=== PATIENT | male | born 1955 | race Caucasian/White ===

== ENCOUNTER → 2016-06-28 | Outpatient (CLI) | payer OTHER | LOC: RAD 09:29 | PROVIDERS: ATTEND Specialist | DX: C61 Malignant neoplasm of prostate (principal) | CPT/HCPCS: 78306; A9503; Q9969 ==

== ENCOUNTER 2016-12-09 10:13 | Emergency (ER) | payer OTHER ==
[2016-12-09] MEDS ORDERED: PENICILLIN V POTASSIUM 500 MG TABLET PO ONE (11:12)
[2016-12-09] MEDS ORDERED: LIDOCAINE 2% VISCOUS SOLN 20 ML UDCUP PO ONE (11:12)
--- NOTE | 2016-12-09 11:21 | ER Document Report ---
ED Oral Problem - General Chief Complaint: Toothache Stated Complaint: JAW PAIN Time Seen by Provider: 12/09/16 10:55 Mode of Arrival: Ambulatory Information source: Patient Notes: 61-year-old male presents to ED for pain to his right jaw but to 22 months but getting worse today for the pain. 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 TRAVEL OUTSIDE OF THE [place] IN LAST 30 DAYS: No - HPI Patient complains to provider of: Jaw pain Onset: Other - 2 months worse today Onset: Gradual Quality of pain: Sharp, Throbbing Severity: Moderate Pain Level: 4 Associated symptoms: Jaw pain Worsened by: Heat Relieved by: Nothing Similar symptoms previously: Yes Recently seen / treated by doctor/dentist: No - Related Data Allergies/Adverse Reactions: No Known Allergies Allergy (Unverified 12/09/16 10:25) Past Medical History - Social History Smoking Status: Current Every Day Smoker Chew tobacco use (# tins/day): No Frequency of alcohol use: None Drug Abuse: None Lives with: Alone Family History: Reviewed & Not Pertinent Patient has suicidal ideation: No - Past Medical History Cardiac Medical History: Reports: Hx Hypertension Pulmonary Medical History: Reports: None EENT Medical History: Reports: None Neurological Medical History: Reports: None Endocrine Medical History: Reports: Hx Diabetes Mellitus Type 2 Renal/ Medical History: Reports: None Malignancy Medical History: Reports Hx Prostate Cancer GI Medical History: Reports: None Musculoskeltal Medical History: Reports None Skin Medical History: Reports None Psychiatric Medical History: Reports: None Traumatic Medical History: Reports: None Infectious Medical History: Reports: None Surgical Hx: Negative - Immunizations Hx Diphtheria, Pertussis, Tetanus Vaccination: Yes Review of Systems - Review of Systems Constitutional: No symptoms reported EENT: Mouth pain - Right lower jaw pain at the site of a previous dental extraction with redness and inflammation. Cardiovascular: No symptoms reported Respiratory: No symptoms reported Gastrointestinal: No symptoms reported Genitourinary: No symptoms reported Male Genitourinary: No symptoms reported Musculoskeletal: No symptoms reported Skin: No symptoms reported Hematologic/Lymphatic: No symptoms reported Neurological/Psychological: No symptoms reported -: Yes All other systems reviewed and negative Physical Exam - Vital signs Vitals: Temp Pulse Resp BP Pulse Ox 98.2 F 70 16 196/104 H 97 12/09/16 10:26 12/09/16 10:26 12/09/16 10:26 12/09/16 10:26 12/09/16 10:26 Interpretation: Normal - General General appearance: Appears well, Alert - HEENT Head: Normocephalic, Atraumatic Eyes: Normal Pupils: PERRL Ears: Normal External canal: Normal Tympanic membrane: Normal Nasal: Normal Mouth/Lips: Normal Mucous membranes: Normal Teeth diagram: 1 - Red swollen area at the site of a previous dental extraction. Pharynx: Normal Neck: Normal - Respiratory Respiratory status: No respiratory distress Chest status: Nontender Breath sounds: Normal Chest palpation: Normal - Cardiovascular Rhythm: Regular Heart sounds: Normal auscultation Murmur: No - Abdominal Inspection: Normal Distension: No distension Bowel sounds: Normal Tenderness: Nontender Organomegaly: No organomegaly - Back Back: Normal, Nontender - Extremities General upper extremity: Normal inspection, Nontender, Normal color, Normal ROM , Normal temperature General lower extremity: Normal inspection, Nontender, Normal color, Normal ROM , Normal temperature, Normal weight bearing. No: Tomas's sign - Neurological Neuro grossly intact: Yes Cognition: Normal Orientation: AAOx4 [place] Coma Scale Eye Opening: Spontaneous Ronaldo Coma Scale Verbal: Oriented Ronaldo Coma Scale Motor: Obeys Commands Ronaldo Coma Scale Total: 15 Speech: Normal Motor strength normal: LUE, RUE, LLE, RLE Sensory: Normal - Psychological Associated symptoms: Normal affect, Normal mood - Skin Skin Temperature: Warm Skin Moisture: Dry Skin Color: Normal Course - Re-evaluation Re-evalutation: 12/09/16 13:41 Dr. villalpando was called and an appointment made for the patient to follow-up tomorrow for his pain is swelling to the site of a previous dental extraction. Patient was given instructions on location of Dr. villalpando in the time of his appointment. Patient was started on penicillin VK and given viscous lidocaine for his pain. - Vital Signs Vital signs: Temp Pulse Resp BP Pulse Ox 98.2 F 70 16 176/103 H 97 12/09/16 10:26 12/09/16 11:34 12/09/16 11:34 12/09/16 11:34 12/09/16 11:34 Discharge - Discharge Clinical Impression: right jaw pain from tooth extraction Condition: Stable Disposition: HOME, SELF-CARE Additional Instructions: TOOTHACHE: Your pain is due to infection from previous dental extraction. The site must be repaired in order for you to feel better. You will, therefore, be referred to a dentist. We do not have dentists on the staff at [facility]. Severe swelling or drainage around can mean an abscess. This also requires evaluation and treatment by the dentist, but antibiotics may be prescribed while awaiting dental treatment. You should be rechecked immediately if you develop major swelling of the face, increasing pain, a lump in the jaw or gums, headache, difficulty swallowing, or fever. PENICILLIN V K: You have been given a prescription for Penicillin VK. Your physician has determined that this is the best antibiotic for your condition. Pen VK can be taken with meals, however more of the antibiotic gets into the bloodstream if it's taken on an empty stomach. Penicillin usually has no side effects. However, allergy to penicillins is common. If you have had an allergic reaction to any drug of the penicillin family, you should never take any other penicillin. Notify your doctor at once if you develop hives, itching, swelling, faintness, or shortness of breath. FOLLOW-UP CARE: You have been referred for follow-up care to the dentists listed below. Call the dentists office for an appointment as you were instructed or within the next two days. If you experience worsening or a significant change in your symptoms, notify the physician immediately or return to the Emergency Department at any time for re-evaluation. [facility] [address] [place], [place] Friday mornings, by appointment [facility] [address] [place] [address] [facility] [address] [facility] [place] [address] [facility] [place] [facility] [address] [email or web address] [address] [place] [address] Friday- 8:00am to 5:00 pm Will [facility] other [facility]. Charges based on income and family size and accepts Medicare, Medicaid, and Insurances Will pull molars COUNT INCLUDES THE [facility] [address] Hours of Operation 8:00 am - 4:30 pm weekdays The following dental offices accept Medicaid: [facility] Dr. Gonzalez Dr. Velazquez Dr. Fya Dr. Luis Enrique Thurston Lutsavage, and [facility] Dr. Barajas ([place]) Dr. Ross ([place]) [facility] Drs. Shea and Lb ([place]) Dr. Brown ([place]) [facility] [place] Dr. Swan ([place]) Drs. De La Rosa and ([place]) Medicaid Care Line Prescriptions: Penicillin V Potassium [Penicillin Vk 500 mg Tablet] 500 mg PO BID #20 tablet Forms: Elevated Blood Pressure, Return to Work Referrals: HOLLY VILLALPANDO DDS [ACTIVE STAFF] - Follow up tomorrow (10 am on 12/09/16)
[2016-12-09 11:37] VITALS: BP 176/103
== END 2016-12-09 11:39 | disposition home or self-care (01) ==
LOC: ER 10:13
DX: R68.84 Jaw pain (principal); Z98.890 Other specified postprocedural states; Z85.46 Personal history of malignant neoplasm of prostate; Z85.830 Personal history of malignant neoplasm of bone; I10 Essential (primary) hypertension; E11.9 Type 2 diabetes mellitus without complications; F17.200 Nicotine dependence, unspecified, uncomplicated
CPT/HCPCS: 99282; J3490

== ENCOUNTER → 2018-01-05 | Outpatient (CLI) | payer OTHER ==
--- NOTE | 2018-01-05 17:11 | RADIOLOGY REPORT (SQ) ---
EXAM DESCRIPTION: NM WHOLE BODY BONE SCAN COMPLETED DATE/TIME: 01/05/2018 2:27 pm REASON FOR STUDY: PROSTATE CA C61 MALIGNANT NEOPLASM OF PROSTATE COMPARISON: Bone scan 06/28/2016, 08/05/2014 CT chest 08/28/2015 RADIONUCLIDE AND DOSE: 21.8 millicuries Tc99m MDP. The route of agent administration: Intravenous. ADDITIONAL DRUGS AND DOSES: None. TECHNIQUE: Routine delayed images at 3 hours post radionuclide injection acquired of the bony skelet on including anterior and posterior whole-body projections and additional focused images as needed. LIMITATIONS: None. FINDINGS: BONES: Punctate focus of increased uptake along the left posterior 9th rib likely from old healed fracture. This is unchanged prior studies. Increased uptake at both acromioclavicular and sternoclavicular joints, the 1st MCP joints, bilateral knees in characteristic locations for osteoarthritis. There is increased uptake along the right C3-4 and C4-5 facet joints, and the right 8th and 9th costo vertebral joints from arthritis. Right L5-S1 facet arthropathy with increased uptake. There is increased uptake over the mandible which is less intense than on 06/28/2016. KIDNEYS: Symmetric excretion without obstruction. OTHER: No other significant finding. IMPRESSION: No worrisome findings. Decrease in mandible uptake compared to previous studies. Focal hot spots on today's bone scan correlate with characteristic areas for osteoarthritis. COMMENT: Quality measure 147: Current bone scan is compared with any available plain radiographs, p rior bone scans, and CT/MRI. TECHNICAL DOCUMENTATION: JOB ID: [id number] [employer]- All Rights Reserved Reading location - IP/workstation name: [email or web address]
== END ==
LOC: RAD 10:44
PROVIDERS: ATTEND Internal Medicine Hematology & Oncology
DX: C61 Malignant neoplasm of prostate (principal); C79.51 Secondary malignant neoplasm of bone
CPT/HCPCS: 78306; A9561; Q9969

== ENCOUNTER → 2019-02-05 | Outpatient (CLI) | payer BC, OTHER ==
--- NOTE | 2019-02-05 10:54 | RADIOLOGY REPORT (SQ) ---
EXAM DESCRIPTION: CT CHEST WITH COMPLETED DATE/TIME: 02/05/2019 9:48 am REASON FOR STUDY: PROSTATE CANCER BONE CANCER C61 MALIGNANT NEOPLASM OF PROSTATE COMPARISON: CT of the chest without contrast from 08/28/2015 and bone scan from 01/05/2018 TECHNIQUE: CT scan of the chest performed using helical scanning technique with dynamic intravenous contrast injection. Images reviewed with lung, soft tissue and bone windows. Reconstructed coronal and sagittal MPR and MIP images reviewed. All images stored on PACS. All CT scanners at this facility use dose modulation, iterative reconstruction, and/or weight based d osing when appropriate to reduce radiation dose to as low as reasonably achievable (ALARA). [facility]: Dose Right [facility]: CareDose [facility]: Dose Right [facility]: Teradose 4D [facility]: Advise Only CONTRAST TYPE AND DOSE: 100 mL Omnipaque 300- low osmolar. RENAL FUNCTION: GFR > 60. RADIATION DOSE: DLP 2166.71 mGy cm. LIMITATIONS: None. FINDINGS: LUNGS AND PLEURA: The trachea and main bronchi are patent. There is no consolidation, speedy eolar per opacification, nodule/ mass or pleural abnormality. HILAR AND MEDIASTINAL STRUCTURES: There are several prominent mediastinal and hilar lymph nodes that include 2 right upper paratracheal lymph nodes that measure up to 11 mm in short axis diameter, a 9 m m short axis right lower paratracheal lymph node, an 8 mm short axis AP window lymph node, and an 8 m m short axis right hilar lymph node. HEART AND VASCULAR STRUCTURES: Atherosclerotic calcification of the coronary arteries. No cardiomega ly or pericardial effusion. No thoracic aortic dissection or aneurysm. HARDWARE: None. UPPER ABDOMEN: See separate report of the CT of the abdomen. THYROID AND OTHER SOFT TISSUES: There is mild bilateral gynecomastia. There are no masses or adenopa thy. BONES: Sclerotic lesion within the right posterolateral aspect of the T3 vertebral body; the degree o f sclerosis of the lesion has decreased compared to 08/28/2015. There is no other sclerotic/osteoblast ic osseous lesion. There is no fracture. OTHER: No other finding. IMPRESSION: No evidence of metastatic disease. The sclerotic lesion within the right posterolateral aspect of the T3 vertebral body was present on the CT from 08/28/2015 and the degree of sclerosis of t he lesion has in the interval. TECHNICAL DOCUMENTATION: JOB ID: [id number] Quality ID # [id number]: Final reports with documentation of one or more dose reduction techniques (e.g., Au tomated exposure control, adjustment of the mA and/or kV according to patient size, use of iterative reconstruction technique) 2010 [employer]- All Rights Reserved Reading location - IP/workstation name: [email or web address]
--- NOTE | 2019-02-05 13:38 | RADIOLOGY REPORT (SQ) ---
EXAM DESCRIPTION: CT ABD/PELVIS WITH IV ONLY COMPLETED DATE/TIME: 02/05/2019 9:46 am REASON FOR STUDY: PROSTATE CANCER BONE CANCER C61 MALIGNANT NEOPLASM OF PROSTATE COMPARISON: CT of the abdomen pelvis with contrast from 08/28/2015 and bone scan from 01/05/2018. TECHNIQUE: CT scan of the abdomen and pelvis performed using helical scanning technique with dynamic intravenous contrast injection. No oral contrast. Images reviewed with lung, soft tissue, and bone windows. Reconstructed coronal and sagittal MPR images reviewed. Delayed images for evaluation of the urinary system also acquired. All images stored on PACS. All CT scanners at this facility use dose modulation, iterative reconstruction, and/or weight based d osing when appropriate to reduce radiation dose to as low as reasonably achievable (ALARA). [facility]: Dose Right [facility]: CareDose [facility]: Dose Right [facility]: Teradose 4D [facility]: [employer]yzios CONTRAST TYPE AND DOSE: Contrast/concentration: Isovue 300.00 mg/ml; Total Contrast Delivered: 100.0 ml; Total Saline Delivered: 72.0 ml RENAL FUNCTION: GFR > 60. RADIATION DOSE: CT Rad equipment meets quality standard of care and radiation dose reduction techniq ues were employed. CTDIvol: 9.9 - 16.7 mGy. DLP: 2167 mGy-cm.. LIMITATIONS: None. FINDINGS: LOWER CHEST: See separate report of the CT of the chest. LIVER: The liver morphology is non cirrhotic. The relative hypoattenuation of hepatic parenchyma com pared to the splenic parenchyma on the portal venous phase is suggestive of hepatic steatosis. The p unctate hypodensity within segment 4 (image 14 of series 3) is unchanged from 08/27/2017. The portal v eins are patent. SPLEEN: No splenomegaly PANCREAS: No abnormality. GALLBLADDER: No abnormality that is apparent on CT. ADRENAL GLANDS: The nodular thickening of the left adrenal gland is unchanged. RIGHT KIDNEY AND URETER: The 1 cm hypodense lesion in the superior cortex of the kidney is stable. T here is no solid mass, hydronephrosis, nephrolithiasis, hydroureter or ureterolithiasis. LEFT KIDNEY AND URETER: The hypodense lesions in the posterolateral aspect of the kidney are stable. There is no solid mass, hydronephrosis, nephrolithiasis, hydroureter or ureterolithiasis. AORTA AND VESSELS: No aneurysm or dissection of the abdominal aorta. There is a variant circumaortic left renal vein. There is a moderate to severe stenosis of the left external iliac artery (image 50 of series 604) and a mild to moderate stenosis of the right external iliac artery (image 48 of serie s 604). RETROPERITONEUM: There are prominent/ enlarged right common iliac (image 55 of series 3) and right ex ternal iliac (image 68 of series 3) lymph nodes that measure up to 11 mm in short axis diameter. BOWEL AND PERITONEAL CAVITY: Colonic diverticulosis without diverticulitis. There is no bowel obstru ction, bowel wall thickening, or pericolonic/ perienteric inflammation. There is no mesenteric adeno eli, free intraperitoneal fluid, or mesenteric/ peritoneal mass. APPENDIX: Normal. PELVIS: The prostate gland is enlarged and heterogeneous. The wall of the urinary bladder is circumf erentially thickened. ABDOMINAL WALL: Fat containing right inguinal hernia. BONES: Sclerotic lesions within the L5 vertebral body and right acetabulum that have developed from . The punctate sclerotic focus within the T12 vertebral body and the subtle sclerotic focus w ithin the right L3 pedicle new stable from 08/28/2015. OTHER: No other finding. IMPRESSION: 1. New sclerotic lesions within the L5 vertebral body and right acetabulum - correlatio n with the findings on the bone scan is recommended. 2. Enlarged right common iliac and right external iliac lymph nodes that measure up to 11 mm concern ing for priscilla metastases. 3. High-grade stenosis of the left common iliac artery. 4. Other secondary findings as detailed above. TECHNICAL DOCUMENTATION: JOB ID: [id number] Quality ID # 436: Final reports with documentation of one or more dose reduction techniques (e.g., Au tomated exposure control, adjustment of the mA and/or kV according to patient size, use of iterative reconstruction technique) 2010 [employer]- All Rights Reserved Reading location - IP/workstation name: [email or web address]
--- NOTE | 2019-02-05 14:22 | RADIOLOGY REPORT (SQ) ---
EXAM DESCRIPTION: NM WHOLE BODY BONE SCAN COMPLETED DATE/TIME: 02/05/2019 1:34 pm REASON FOR STUDY: PROSTATE CANCER BONE CANCER C61 MALIGNANT NEOPLASM OF PROSTATE COMPARISON: BONE SCAN from 01/05/2018. RADIONUCLIDE AND DOSE: 20 millicuries Tc99m HDP. The route of agent administration: Intravenous. ADDITIONAL DRUGS AND DOSES: None. TECHNIQUE: Routine delayed images at 3 hour post radionuclide injection acquired of the bony skeleto n including anterior and posterior whole-body projections and additional focused images as needed. LIMITATIONS: None. FINDINGS: BONES: The foci of increased uptake in the right mandible, left posterior 9th rib, and rig ht L3 pedicle are stable from 01/05/2018. There are new areas of abnormal radiotracer uptake within the L5 vertebral body and right acetabulum. The uptake around the shoulders and sternoclavicular flavio nts is unchanged and could be degenerative in etiology. KIDNEYS: No abnormality. OTHER: No other finding. IMPRESSION: New areas of abnormal radiotracer uptake within the L5 vertebral body and right acetabul um. The foci of increased uptake in the right mandible, left posterior 9th rib, and right L3 hepatic or stable from 01/05/2018. COMMENT: Quality measure 147: Current bone scan is compared with any available plain radiographs, p rior bone scans, and CT/MRI. TECHNICAL DOCUMENTATION: JOB ID: [id number] [employer]- All Rights Reserved Reading location - IP/workstation name: [email or web address]
== END ==
LOC: RAD 08:33
PROVIDERS: ATTEND Nurse Practitioner Family
DX: C61 Malignant neoplasm of prostate (principal); C79.51 Secondary malignant neoplasm of bone; I70.8 Atherosclerosis of other arteries
CPT/HCPCS: 82565; 78306; 71260; 74177; A9561; Q9969

== ENCOUNTER → 2019-08-30 | Outpatient (CLI) | payer BC ==
--- NOTE | 2019-08-30 11:21 | RADIOLOGY REPORT (SQ) ---
EXAM DESCRIPTION: CT CHEST WITHOUT IMAGES COMPLETED DATE/TIME: 08/30/2019 10:22 am REASON FOR STUDY: C61 MALIGNANT NEOPLASM OF PROSTATE C61 MALIGNANT NEOPLASM OF PROSTATE COMPARISON: CT of the chest with contrast from 02/05/2019. TECHNIQUE: CT scan performed of the chest without intravenous contrast. Images reviewed with lung, soft tissue and bone windows. Reconstructed coronal and sagittal MPR images reviewed. All images st ored on PACS. All CT scanners at this facility use dose modulation, iterative reconstruction, and/or weight based d osing when appropriate to reduce radiation dose to as low as reasonably achievable (ALARA). [facility]: Dose Right [facility]: CareDose [facility]: Dose Right [facility]: Teradose 4D [facility]: [employer] LIMITATIONS: No technical limitations. FINDINGS: LUNGS AND PLEURA: The trachea and main bronchi are patent. There is no acute consolidatio n, ground-glass opacification, pleural effusion or pneumothorax. There is no pulmonary nodule or mas s. HILAR AND MEDIASTINAL STRUCTURES: Evaluation of the leslie for adenopathy is limited due to the absence of intravenous contrast. There is no mediastinal adenopathy or mass. HEART AND VASCULAR STRUCTURES: Moderate atherosclerotic calcification of the coronary arteries. Ther e is no cardiomegaly or pericardial effusion. There is no thoracic aortic aneurysm. UPPER ABDOMEN: Refer to the separate report of the CT of the abdomen. THYROID AND OTHER SOFT TISSUES: Mild bilateral gynecomastia. There is no adenopathy or mass. BONES: There are several sclerotic lesions that have increased in size and number from the prior CT ; for reference the sclerotic lesion in the left acromion has increased in size (image 1 of series 2), the lesions in the left anterolateral 2nd rib (image 10 of series 2) and T6 and T10 vertebral bodies are new, and the sclerotic lesion in the T11 vertebral body has increased in size. The sclerotic le lila in the posterolateral aspect of the T3 vertebral body is unchanged. HARDWARE: None in the chest. OTHER: No other findings. IMPRESSION: New and enlarging sclerotic lesions consistent with progression of metastatic disease. TECHNICAL DOCUMENTATION: JOB ID: [id number] Quality ID # [id number]: Final reports with documentation of one or more dose reduction techniques (e.g., Au tomated exposure control, adjustment of the mA and/or kV according to patient size, use of iterative reconstruction technique) 2010 [employer]- All Rights Reserved Reading location - IP/workstation name: [email or web address]
--- NOTE | 2019-08-30 11:23 | RADIOLOGY REPORT (SQ) ---
EXAM DESCRIPTION: CT ABD/PELVIS NO ORAL OR IV IMAGES COMPLETED DATE/TIME: 08/30/2019 10:20 am REASON FOR STUDY: C61 MALIGNANT NEOPLASM OF PROSTATE C61 MALIGNANT NEOPLASM OF PROSTATE COMPARISON: 08/28/2015 TECHNIQUE: CT scan of the abdomen and pelvis performed without intravenous or oral contrast. Images reviewed with lung, soft tissue, and bone windows. Reconstructed coronal and sagittal MPR images revi ewed. All images stored on PACS. All CT scanners at this facility use dose modulation, iterative reconstruction, and/or weight based d osing when appropriate to reduce radiation dose to as low as reasonably achievable (ALARA). [facility]: Dose Right [facility]: CareDose [facility]: Dose Right [facility]: Teradose 4D [facility]: [employer] RADIATION DOSE: CT Rad equipment meets quality standard of care and radiation dose reduction techniq ues were employed. CTDIvol: 10.2 - 14.2 mGy. DLP: 1383 mGy-cm. LIMITATIONS: None. FINDINGS: LOWER CHEST: Please see CT chest report. NON-CONTRASTED LIVER, SPLEEN, ADRENALS: Too small to characterize stable hypoattenuated hepatic lesi ons. Stable mild thickening of the left adrenal gland. Evaluation limited by lack of IV contrast. PANCREAS: No masses. No peripancreatic inflammatory changes. GALLBLADDER: No identified stones by CT criteria. No inflammatory changes to suggest cholecystitis. RIGHT KIDNEY AND URETER: No suspicious masses. Assessment limited by lack of IV contrast. No signif icant calcifications. No hydronephrosis or hydroureter. LEFT KIDNEY AND URETER: Stable hypoattenuated left renal lesion, probably represents a cyst. Assess ment limited by lack of IV contrast. No significant calcifications. No hydronephrosis or hydroure ter. AORTA AND RETROPERITONEUM: Mild atherosclerotic changes involving the abdominal aorta and branch ves sels. No aneurysm. No retroperitoneal masses or adenopathy. BOWEL AND PERITONEAL CAVITY: No obvious masses or inflammatory changes. No free fluid. APPENDIX: Normal. PELVIS, BLADDER, AND ABDOMINAL WALL:The prostate gland is is enlarged and stable in appearance. No f ree fluid. Stable fat containing bilateral inguinal hernias. Mild diffuse thickening of the urinary bladder wall. BONES: Since the previous examination, new finding of smooth homogeneous sclerotic appearance to the L5 vertebra. New sclerotic lesions within the T9 T10, L1 and L3 vertebrae. The posterior elements at the L3 vertebrae on the right. These findings suggest metastatic disease. No evidence of acute f racture. Fairly homogeneous new extensive sclerotic lesion within the right ischium. Small foci of sclerotic areas within the iliac bones, the largest one is in the left iliac bone, the acetabuli, femoral heads and symphysis pubis. No evidence of acute fracture. These findings suggest metastatic disease. OTHER: No other significant finding. IMPRESSION: 1. Since the previous examination dated 08/28/2015, new finding of osseous sclerotic lesi ons within the visualized lower thoracic spine, lumbar spine, pelvic bones and hips. The lesions are more extensive in the region of the L5 vertebral body and right ischium. These findings suggest met astatic disease. No evidence of acute fracture 2. Additional stable findings as above. COMMENT: Quality ID # 436: Final reports with documentation of one or more dose reduction techniques (e.g., Automated exposure control, adjustment of the mA and/or kV according to patient size, use of iterative reconstruction technique) TECHNICAL DOCUMENTATION: JOB ID: [id number] 2010 [employer]- All Rights Reserved Reading location - IP/workstation name: [email or web address]
--- NOTE | 2019-08-30 16:05 | RADIOLOGY REPORT (SQ) ---
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 The route of agent administration: Intravenous. ADDITIONAL DRUGS AND DOSES: None. TECHNIQUE: Routine delayed images at 3 hours post radionuclide injection acquired of the bony skelet on including anterior and posterior whole-body projections and additional focused images as needed. LIMITATIONS: None. FINDINGS: BONES: What appears be degenerative uptake is seen in the AC joints and in the knees. The uptake in the right pedicle of L4 remains fairly intense. The uptake in the L5 vertebral body remai ns fairly intense there is slightly decreased uptake in the right acetabulum. There is decreased upt emani in the right mandible. KIDNEYS: Symmetric excretion without obstruction. OTHER: No other significant finding. IMPRESSION: Metastatic disease to bone with findings as described. A couple of areas show improveme nt. COMMENT: Quality measure 147: Current bone scan is compared with any available plain radiographs, p rior bone scans, and CT/MRI. TECHNICAL DOCUMENTATION: JOB ID: [id number] 2010 [employer]- All Rights Reserved Reading location - IP/workstation name: [email or web address]
== END ==
LOC: RAD 09:45
PROVIDERS: ATTEND Nurse Practitioner Family
DX: C61 Malignant neoplasm of prostate (principal); C79.51 Secondary malignant neoplasm of bone
CPT/HCPCS: 82565; 78306; 71250; 74176; A9503; Q9969

== ENCOUNTER → 2020-04-06 | Outpatient (CLI) | payer BC, MEDICARE ==
--- NOTE | 2020-04-06 14:05 | RADIOLOGY REPORT (SQ) ---
EXAM DESCRIPTION: CT CHEST WITH IMAGES COMPLETED DATE/TIME: 04/06/2020 9:51 am REASON FOR STUDY: (C61)MALIGNANT NEOPLASM OF PROSTATE C61 MALIGNANT NEOPLASM OF PROSTATE COMPARISON: 08/30/2019 TECHNIQUE: CT scan of the chest performed using helical scanning technique with dynamic intravenous contrast injection. Images reviewed with lung, soft tissue and bone windows. Reconstructed coronal and sagittal MPR and MIP images reviewed. All images stored on PACS. All CT scanners at this facility use dose modulation, iterative reconstruction, and/or weight based d osing when appropriate to reduce radiation dose to as low as reasonably achievable (ALARA). [facility]: Dose Right [facility]: CareDose [facility]: Dose Right [facility]: Teradose 4D [facility]: [email or web address] CONTRAST TYPE AND DOSE: contrast/concentration: Isovue 300.00 mmol/ml; Total Contrast Delivered: 75. 0 ml; Total Saline Delivered: 40.0 ml RENAL FUNCTION: Creatinine 1.9 RADIATION DOSE: CT Rad equipment meets quality standard of care and radiation dose reduction techniq ues were employed. CTDIvol: 10.3 - 10.5 mGy. DLP: 1621 mGy-cm. . LIMITATIONS: None. FINDINGS: LUNGS AND PLEURA: No opacities, nodules, masses. No pneumothorax. No effusions. HILAR AND MEDIASTINAL STRUCTURES: No identified masses or abnormal nodes. HEART AND VASCULAR STRUCTURES: No aneurysm or dissection. No central pulmonary emboli. No pericardi al effusion. HARDWARE: None in the chest. UPPER ABDOMEN: See separate report of the CT of the abdomen. THYROID AND OTHER SOFT TISSUES: No masses. No adenopathy. BONES: Stable scattered sclerotic metastatic lesions. No pathologic fracture. OTHER: No other significant finding. IMPRESSION: Stable bone metastasis. TECHNICAL DOCUMENTATION: JOB ID: [id number] Quality ID # 436: Final reports with documentation of one or more dose reduction techniques (e.g., Au tomated exposure control, adjustment of the mA and/or kV according to patient size, use of iterative reconstruction technique) 2010 [employer]- All Rights Reserved Reading location - IP/workstation name: [email or web address]
--- NOTE | 2020-04-06 14:12 | RADIOLOGY REPORT (SQ) ---
EXAM DESCRIPTION: CT ABD/PELVIS WITH IV ONLY IMAGES COMPLETED DATE/TIME: 04/06/2020 9:51 am REASON FOR STUDY: (C61)MALIGNANT NEOPLASM OF PROSTATE C61 MALIGNANT NEOPLASM OF PROSTATE COMPARISON: 02/05/2019 TECHNIQUE: CT scan of the abdomen and pelvis performed using helical scanning technique with dynamic intravenous contrast injection. No oral contrast. Images reviewed with lung, soft tissue, and bone windows. Reconstructed coronal and sagittal MPR images reviewed. Delayed images for evaluation of the urinary system also acquired. All images stored on PACS. All CT scanners at this facility use dose modulation, iterative reconstruction, and/or weight based d osing when appropriate to reduce radiation dose to as low as reasonably achievable (ALARA). [facility]: Dose Right [facility]: CareDose [facility]: Dose Right [facility]: Teradose 4D [facility]: [employer] RENAL FUNCTION: GFR > 60. RADIATION DOSE: . LIMITATIONS: None. FINDINGS: LOWER CHEST: See separate report of the CT of the chest. LIVER: Stable low-density lesion in the dome too small to characterize. SPLEEN: Normal size. No focal lesions. PANCREAS: No masses. No significant calcifications. No adjacent inflammation or peripancreatic fluid collections. Pancreatic duct not dilated. GALLBLADDER: No identified stones by CT criteria. No inflammatory changes to suggest cholecystitis. ADRENAL GLANDS: Left adrenal thickening which is unchanged. RIGHT KIDNEY AND URETER: No solid masses. No significant calcifications. No hydronephrosis or hyd roureter. LEFT KIDNEY AND URETER: No solid masses. No significant calcifications. No hydronephrosis or hydr oureter. AORTA AND VESSELS: No aneurysm. RETROPERITONEUM: No retroperitoneal adenopathy, hemorrhage or masses. BOWEL AND PERITONEAL CAVITY: No masses or inflammatory changes. No free fluid or peritoneal masses. APPENDIX: Not visualized. PELVIS: No mass. No free fluid. Normal bladder. ABDOMINAL WALL: No masses. No hernias. BONES: Sclerotic metastasis L5 and pelvis. New sclerotic lesion left ilium image 58. OTHER: No other significant finding. IMPRESSION: 1. Increasing bone metastasis. 2. Resolved right iliac adenopathy. TECHNICAL DOCUMENTATION: JOB ID: [id number] Quality ID # 436: Final reports with documentation of one or more dose reduction techniques (e.g., Au tomated exposure control, adjustment of the mA and/or kV according to patient size, use of iterative reconstruction technique) 2010 [employer]- All Rights Reserved Reading location - IP/workstation name: [email or web address]
--- NOTE | 2020-04-06 14:21 | RADIOLOGY REPORT (SQ) ---
EXAM DESCRIPTION: NM WHOLE BODY BONE SCAN IMAGES COMPLETED DATE/TIME: 04/06/2020 12:58 pm REASON FOR STUDY: (C61)MALIGNANT NEOPLASM OF PROSTATE C61 MALIGNANT NEOPLASM OF PROSTATE COMPARISON: 08/30/2019 RADIONUCLIDE AND DOSE: 20 millicuries Tc99m MDP. The route of agent administration: Intravenous. ADDITIONAL DRUGS AND DOSES: None. TECHNIQUE: Routine delayed images at 3 hours post radionuclide injection acquired of the bony skelet on including anterior and posterior whole-body projections and additional focused images as needed. LIMITATIONS: None. FINDINGS: BONES: There is abnormal uptake in the right pedicle at L4 hand in what appears to be the L5 vertebral body. Previous is seen uptake in the right mandible is improved. There is persistent u ptake in the right acetabulum that shows improvement. There is a small area of uptake in the right 9 th rib posteriorly. KIDNEYS: Symmetric excretion without obstruction. OTHER: No other significant finding. IMPRESSION: Metastatic disease to bone. There appears to be slight improvement in the activity in t he right mandible and in the right acetabulum. COMMENT: Quality measure 147: Current bone scan is compared with any available plain radiographs, p rior bone scans, and CT/MRI. TECHNICAL DOCUMENTATION: JOB ID: [id number] 2010 [employer]- All Rights Reserved Reading location - IP/workstation name: [email or web address]
== END ==
LOC: RAD 09:09
PROVIDERS: ATTEND Nurse Practitioner Family
DX: C61 Malignant neoplasm of prostate (principal); C79.51 Secondary malignant neoplasm of bone
CPT/HCPCS: 82565; 78306; 71260; 74177; A9503; Q9969